=== PATIENT | male | born 1960 | race Caucasian/White ===

== ENCOUNTER 2017-11-30 06:55 | Day surgery (SDC) | payer BC ==
[~2017-11-30] VITALS: Ht 188 cm; Wt 87.3 kg
[~2017-11-30 06:55] MED LIST: MONT10T; OMEPRAZOLE MAGN20 MG; VALS80; ZYRTEC10 M1
== END 2017-11-30 09:15 | disposition home or self-care (01) ==
LOC: ORSCSDS 06:55
PROVIDERS: Surgery
PROC: 0DBL8ZX Excision of Transverse Colon, Via Natural or Artificial Opening Endoscopic, Diagnostic (ICD-10-PCS; principal; 2017-11-30 08:00)
PROC: 0DB68ZX Excision of Stomach, Via Natural or Artificial Opening Endoscopic, Diagnostic (ICD-10-PCS; principal; 2017-11-30 08:00)
PROC: 0DB48ZX Excision of Esophagogastric Junction, Via Natural or Artificial Opening Endoscopic, Diagnostic (ICD-10-PCS; principal; 2017-11-30 08:00)
DX: K21.0 Gastro-esophageal reflux disease with esophagitis (principal); D12.3 Benign neoplasm of transverse colon; Z12.11 Encounter for screening for malignant neoplasm of colon; Z80.0 Family history of malignant neoplasm of digestive organs; I10 Essential (primary) hypertension; E78.5 Hyperlipidemia, unspecified; N40.0 Benign prostatic hyperplasia without lower urinary tract symptoms; Z79.899 Other long term (current) drug therapy
CPT/HCPCS: 88305; 88342; J0330; J1980; J2405; J7120

== ENCOUNTER 2023-06-15 06:52 | Day surgery (SDC) | payer BC ==
[~2023-06-15] VITALS: Ht 188 cm; Wt 87.3 kg
[2023-06-15] MEDS ORDERED: LOSA25 (08:04)
[2023-06-15] MEDS ORDERED: ESOM20 (08:04)
[2023-06-15] MEDS ORDERED: Vitamin B-12100 MCG (08:05)
[2023-06-15 09:13] VITALS: BP 112/74
--- NOTE | 2023-06-15 09:15 | NUR ---
06/15/23 0915 Rosalie Ramirez IV DC'D, CATH INTACT. PT TOLERATED WELL. GAUZE/COBAN IN PLACE
== END 2023-06-15 09:15 | disposition home or self-care (01) ==
LOC: ORSCSDS 06:52
PROVIDERS: Surgery
PROC: 0DJD8ZZ Inspection of Lower Intestinal Tract, Via Natural or Artificial Opening Endoscopic (ICD-10-PCS; principal; 2023-06-15 08:30)
DX: Z12.11 Encounter for screening for malignant neoplasm of colon (principal); Z86.010 Personal history of colon polyps; Z80.0 Family history of malignant neoplasm of digestive organs; K21.9 Gastro-esophageal reflux disease without esophagitis; I10 Essential (primary) hypertension; Z79.899 Other long term (current) drug therapy
CPT/HCPCS: J2704; J7120